=== PATIENT | male | born 1990 | race Caucasian/White ===

== ENCOUNTER 2019-02-10 23:01 | Emergency (ER) | payer BC ==
[2019-02-10 23:11] VITALS: BP 135/97
[2019-02-10 23:37] LABS: Influenza A Molecular NEGATIVE (Negative); Influenza B Molecular NEGATIVE (Negative)
== END 2019-02-11 00:16 | disposition left against medical advice (07) ==
LOC: ED 23:01
DX: Z53.21 Procedure and treatment not carried out due to patient leaving prior to being seen by health care provider (principal)
CPT/HCPCS: 99282